=== PATIENT | female | born 1960 | race Caucasian/White ===

== ENCOUNTER 2020-08-29 10:25 | Emergency (ER) | payer OTHER ==
[2020-08-29 12:13] LABS: BASOPHIL 0.7 % (0-2); EOSINOPHIL 0.2 % (0-5); HCT 43.9 % (37.0-47.0); HGB 15.2 g/dl (12.5-16.0); LYMPHOCYTE 15.5 % (15-48); MCH 32.1 pg (25.0-31.0); MCHC 34.6 g/dL (32.0-36.0); MCV 92.6 fL (78.0-100.0); MONOCYTE 8.9 % (0-12); MPV 10.6 fL (6.0-9.5); NEUTROPHIL 74.2 % (41-80); NRBC 0; PLT 259 K/uL (150-400); RBC 4.74 M/uL (4.20-5.40); RDW 11.9 % (11.5-14.0); WBC 6.1 K/uL (4.0-10.5)
[2020-08-29 12:46] LABS: ALBUMIN 4.3 g/dL (3.4-5.0); BILIRUBIN - TOTAL 0.7 mg/dL (0.2-1.0); BUN/CREAT RATIO (CALC) 14.5 RATIO; CREATININE 0.62 mg/dL (0.51-0.95); GLOBULIN (CALCULATION) 3.3 g/dL; MAGNESIUM 1.7 mg/dL (1.8-2.4); POTASSIUM 3.5 mmol/L (3.5-5.1); TOTAL PROTEIN 7.6 g/dL (6.4-8.2)
[2020-08-29] MEDS ORDERED: IMODIUM2 MG PO (16:27)
[2020-08-29] MEDS ORDERED: BENTYL10 MG PO (16:27)
[2020-08-29 16:40] LABS: BILIRUBIN NEGATIVE (NEGATIVE); BLOOD NEGATIVE Ery/uL (NEGATIVE); CLARITY CLEAR (CLEAR); COLOR YELLOW (YELLOW); GLUCOSE (U) NORMAL (NORMAL); LEUKOCYTES NEGATIVE Leu/uL (NEGATIVE); NITRITE NEGATIVE (NEGATIVE); PROTEIN NEGATIVE (NEGATIVE); SPECIFIC GRAVITY <=1.005 (1.001-1.030); UROBILINOGEN 0.2 mg/dL (0.2-1.0); pH 6.5 (5.0-9.0)
== END 2020-08-29 16:28 | disposition home or self-care (01) ==
LOC: FER 10:25
PROVIDERS: Emergency Medicine
DX: K58.0 Irritable bowel syndrome with diarrhea (principal)
CPT/HCPCS: 36415; 80053; 81003; 83540; 83605; 83690; 83735; 84145; 84443; 84484; 85025; J2060; J7030; Q9967

== ENCOUNTER 2021-05-06 20:51 | Emergency (ER) | payer OTHER ==
[~2021-05-06 20:51] MED LIST: BENTYL10 MG PO; IMODIUM2 MG PO
[2021-05-06 21:54] LABS: BASOPHIL 0.2 % (0-2); EOSINOPHIL 0.1 % (0-5); HCT 44.1 % (37.0-47.0); HGB 14.7 g/dl (12.5-16.0); LYMPHOCYTE 3.4 % (15-48); MCH 30.2 pg (25.0-31.0); MCHC 33.3 g/dL (32.0-36.0); MCV 90.6 fL (78.0-100.0); MONOCYTE 6.2 % (0-12); MPV 10.9 fL (6.0-9.5); NEUTROPHIL 89.8 % (41-80); NRBC 0; PLT 239 K/uL (150-400); RBC 4.87 M/uL (4.20-5.40); RDW 11.9 % (11.5-14.0); WBC 12.5 K/uL (4.0-10.5)
[2021-05-06 22:07] LABS: BUN/CREAT RATIO (CALC) 21.1 RATIO; CREATININE 0.76 mg/dL (0.51-0.95); GLOBULIN (CALCULATION) 3.7 g/dL; POTASSIUM 3.8 mmol/L (3.5-5.1); TOTAL PROTEIN 7.7 g/dL (6.4-8.2)
[2021-05-06 22:19] LABS: LACTIC ACID 3.2 mmol/L (0.4-1.9)
[2021-05-07 00:17] LABS: CORONAVIRUS 2019 SARS-COV-2 NEGATIVE (NEGATIVE); INFLUENZA A NAA NEGATIVE (NEGATIVE)
== END 2021-05-07 00:54 | disposition other institution (70) ==
LOC: FER 20:51
PROVIDERS: Emergency Medicine
DX: S05.32XA Ocular laceration without prolapse or loss of intraocular tissue, left eye, initial encounter (principal); R55 Syncope and collapse; A41.9 Sepsis, unspecified organism; Z23 Encounter for immunization; Z20.822 Contact with and (suspected) exposure to COVID-19; Z88.1 Allergy status to other antibiotic agents; Z88.2 Allergy status to sulfonamides
CPT/HCPCS: 36415; 70450; 70480; 71250; 72125; 80053; 83605; 83880; 84145; 84443; 84484; 85025; 87040; 90471; 90715; 93005; J0692; J2270; J7030; U0002